=== PATIENT | male | born 1960 | race Caucasian/White ===

== ENCOUNTER 2017-04-08 09:17 | Day surgery (SDC) | payer MEDICARE, MEDICAID ==
[2017-04-08] MEDS ORDERED: PROPOFOL 10 MG/ML VIAL IV ONE (15:12)
[2017-04-08] MEDS ORDERED: MIDAZOLAM HCL 2MG/2ML VIAL IV ONE (15:12)
[2017-04-08] MEDS ORDERED: LIDOCAINE 2% MDV (20MG/ML) 20ML VIAL IV ONE (15:12)
--- NOTE | 2017-04-09 18:30 | Operative Note ---
DATE OF SURGERY: 04/08/2017 OPERATION: COLONOSCOPY to the cecum with cold biopsy forceps polypectomy x1, cold snare polypectomy x1, and electrocautery snare polypectomy x1. INDICATION: History of adenomatous polyps. The patient returns at this time for surveillance. It is not clear when his last examination was although he thought it was perhaps 5 years ago. The records are not available due to computer issues at this time. ANESTHESIA: Intravenous sedation was administered by the department of anesthesiology and included Diprivan titrated to effect. PROCEDURE: Following informed consent from this alert individual including a discussion of the risks and benefits of the procedure and an opportunity for the patient to ask questions, the patient was in the left lateral decubitus position. A digital rectal examination was performed. No abnormalities were noted. Following this, the Olympus [id number] video colonoscope was inserted into the rectum without resistance. The rectal mucosa had a normal appearance with normal folds and distensibility. The colonoscope was advanced up through the bowel to the level of the cecum without much difficulty although the colon preparation was probably somewhat suboptimal with some retained solid stool noted. The cecum was defined by noting the appendiceal orifice and ileocecal valve. At the level of the cecum, there was a diminutive 3 mm polyp noted which was removed with biopsy forceps. There was a second polyp noted in the proximal descending colon measuring 4 mm in size which was removed with cold snare polypectomy. There was a larger 8 mm polyp noted at the sigmoid colon removed with electrocautery snare polypectomy. Again there was some retained solid stool noted, particularly in the left colon and ascending colon and cecum. Retroflexion in the rectum was endoscopically unremarkable. The endoscope was straightened and withdrawn. The patient tolerated the procedure well and was returned to the recovery area in stable condition. IMPRESSION: 1. A 3 mm cecal polyp removed with biopsy forceps. 2. A 4 mm descending colon polyp removed with cold snare polypectomy. 3. An 8 mm sigmoid polyp removed with electrocautery snare polypectomy. 4. Fair prep with some retained solid stool. RECOMMENDATIONS: The patient was advised he should receive a copy of his pathology report at home in the next 2-3 weeks. If not, he was asked to call my office to review the results of testing today. Further recommendations may be forthcoming pending those results. He will also have a recommendation for repeat examination in 1 year's time due to the preparation which was suboptimal. As always, thank you for allowing me to participate in the care of your patient. CC: Dr. Gerry FIORE
== END 2017-04-08 11:35 | disposition home or self-care (01) ==
LOC: HOP 09:17
PROVIDERS: ATTEND Internal Medicine Gastroenterology
DX: Z86.010 Personal history of colon polyps (principal); D12.4 Benign neoplasm of descending colon; D12.5 Benign neoplasm of sigmoid colon; D12.0 Benign neoplasm of cecum; I10 Essential (primary) hypertension; E78.00 Pure hypercholesterolemia, unspecified; E11.9 Type 2 diabetes mellitus without complications; Z79.4 Long term (current) use of insulin

== ENCOUNTER 2018-05-19 07:50 | Day surgery (SDC) | payer MEDICARE, MEDICAID ==
[2018-05-19] MEDS ORDERED: PROPOFOL 10 MG/ML VIAL IV ONE (07:51)
[2018-05-19] MEDS ORDERED: LIDOCAINE 2% MDV (20MG/ML) 20ML VIAL IV ONE (07:51)
[2018-05-19] MEDS ORDERED: MIDAZOLAM HCL 2MG/2ML VIAL IV ONE (07:51)
--- NOTE | 2018-05-20 13:20 | Operative Note ---
DATE OF SURGERY: 05/19/2018 OPERATION: COLONOSCOPY to the cecum with cold biopsy forceps polypectomy x2 and cold snare polypectomy x2. INDICATION: History of adenomatous polyps in the past. The patient returns at this time for surveillance. He had an examination 1 year ago but unfortunately the prep was fair at best. He returns at this time after 1 year. ANESTHESIA: Intravenous sedation was administered by the department of anesthesiology and included Diprivan titrated to effect. PROCEDURE: Following informed consent from this alert individual including a discussion of the risks and benefits of the procedure and an opportunity for the patient to ask questions, the patient was in the left lateral decubitus position. A digital rectal examination was performed. No abnormalities were noted. Following this, the Olympus [id number] video colonoscope was inserted into the rectum without resistance. The rectal mucosa had a normal appearance with normal folds and distensibility. The colonoscope was advanced up through the bowel to the level of the cecum without much difficulty. Throughout the bowel the mucosa appeared normal, the folds were normal, and the bowel was fairly well distensible. The cecum was defined by noting the appendiceal orifice and ileocecal valve. From the base of the cecum, the colonoscope was then withdrawn. The right colon and transverse colon were endoscopically normal. In the descending colon there were 3 polyps noted. Two were diminutive in size and removed with biopsy forceps. One was approximately 7 mm in size and removed with cold snare polypectomy in piecemeal fashion. There was an additional polyp noted in the rectum measuring 5 mm in size which also was removed with cold snare polypectomy. No other mucosal changes were appreciated throughout. Retroflexion was accomplished in the rectum and failed to demonstrate any additional abnormalities. The instrument was straightened and removed. The patient tolerated the procedure well and was returned to the recovery area in stable condition. IMPRESSION: 1. Three descending colon polyps removed as described above. Two were diminutive in size removed with biopsy forceps. One was 7 mm in size and removed in piecemeal fashion with cold snare polypectomy. 2. One rectal 5 mm polyp removed with cold snare polypectomy. The colon preparation was good. RECOMMENDATIONS: Further recommendations will be forthcoming pending results of pathology obtained today. Followup will also be with Gerry Chavez MD. As always, thank you for allowing me to participate in the care of your patient. CC: [facility]
== END 2018-05-19 10:40 | disposition home or self-care (01) ==
LOC: HOP 07:50
PROVIDERS: ATTEND Internal Medicine Gastroenterology
DX: Z12.11 Encounter for screening for malignant neoplasm of colon (principal); Z86.010 Personal history of colon polyps; D12.4 Benign neoplasm of descending colon; K62.1 Rectal polyp; Z94.0 Kidney transplant status; I10 Essential (primary) hypertension; E11.9 Type 2 diabetes mellitus without complications; E78.00 Pure hypercholesterolemia, unspecified